=== PATIENT | male | born 1935 | race Caucasian/White ===

== ENCOUNTER 2021-04-03 22:03 | Inpatient (IN) | payer OTHER ==
[~2021-04-03] VITALS: Ht 200.7 cm; Wt 92.5 kg
[~2021-04-03 22:03] MED LIST: ASPI1TAB20 PO; ATOR-47 PO; BENA10TA14 PO; CARV12.544 PO; CETI1TAB36 PO; CLOP75TA70 PO; FINA5TAB4 PO; FLUT1SUS; LEVO150T10 PO; OMEG1360 PO; POLYSOL2 EACHEYE; TIMO0.5S28 EACHEYE
[2021-04-03 23:05] LABS: Basophils # (auto) 0 10 ^3/uL (0-0.2); Basophils % (auto) 0.3 % (0.0-2.0); Eosinophils # (auto) 0 10 ^3/uL (0-0.8); Eosinophils % (auto) 0.2 % (0.0-7.0); Hematocrit 43.6 % (41.0-53.0); Hemoglobin 15.1 g/dL (13.5-17.5); Lymphocytes # (auto) 2.5 10 ^3/uL (0.4-5.4); Lymphocytes % (auto) 17.9 % (10.0-50.0); Mean Corpuscular Hemoglobin 30.5 pg (28.0-32.0); Mean Corpuscular Hgb Conc. 34.5 g/dL (32.0-36.0); Mean Corpuscular Volume 88.5 fL (80.0-100.0); Monocytes # (auto) 0.9 10 ^3/uL (0-1.3); Neutrophils # (auto) 10.7 10 ^3/uL (1.6-8.6); Neutrophils % (auto) 75.6 % (37.0-80.0); Red Blood Cells 4.93 10^6/uL (4.5-5.90); Red Cell Distribution Width 14.3 % (11.8-14.3); White Blood Cell 14.2 10^3/uL (4.4-10.8)
[2021-04-03 23:19] LABS: INR 1.24 (0.9-1.15); Partial Thromboplastin Time 27.1 sec (23.0-31.2)
[2021-04-03 23:25] LABS: Alanine Aminotransferase 30 U/L (16-61); Albumin 3.2 g/dL (3.4-5.0); Aspartate Aminotransferase 24 U/L (15-37); BUN/Creatinine Ratio 12.5; Blood Urea Nitrogen 15 mg/dL (7-18); Calcium 8.3 mg/dL (8.5-10.1); Carbon Dioxide 22 mmol/L (21-32); GFR African American 74 mL/min; GFR Non-African American 61 mL/min; Glucose 128 mg/dL (74-106); Lipase 63 U/L (73-393); Potassium 4.1 mmol/L (3.5-5.1); Sodium 138 mmol/L (136-145)
[2021-04-03 23:29] LABS: Alkaline Phosphatase 117 U/L (45-117); Bilirubin, Total 1.1 mg/dL (0.2-1.0); Total Protein 7.2 g/dL (6.4-8.2)
[2021-04-03 23:31] LABS: Urine Amorphous Crystal FEW /hpf (None Seen); Urine Bacteria MOD /hpf (None Seen); Urine Blood Negative /uL (Negative); Urine Specific Gravity 1.012 (1.001-1.035); Urine WBC 86 /hpf (0 - 3); Urine WBC Clumps PRESENT /hpf (None Seen)
[2021-04-03 23:39] LABS: Anion Gap 7 (5-15); Chloride 109 mmol/L (98-107)
[2021-04-04] MEDS ORDERED: SODIUM CHLORIDE 0.9% 1,000 ML IV ONE (03:45)
[2021-04-04] MEDS ORDERED: ONDANSETRON HCL 4 MG/2 ML VIAL IV PRN (05:30)
[2021-04-04] MEDS ORDERED: HYDROcodone-ACET 5/325MG TAB PO PRN (05:30)
[2021-04-04] MEDS ORDERED: ACETAMINOPHEN 325 MG TAB PO PRN (05:30)
[2021-04-04] MEDS: LEVOTHYROXINE SODIUM 50 MCG TAB PO SCH (07:04)
[2021-04-04 07:06] LABS: Basophils # (auto) 0 10 ^3/uL (0-0.2); Basophils % (auto) 0.2 % (0.0-2.0); Eosinophils # (auto) 0.1 10 ^3/uL (0-0.8); Lymphocytes % (auto) 36.7 % (10.0-50.0); Mean Corpuscular Volume 88.6 fL (80.0-100.0); Monocytes # (auto) 1.1 10 ^3/uL (0-1.3); Monocytes % (auto) 9.7 % (0.0-12.0); Neutrophils # (auto) 5.7 10 ^3/uL (1.6-8.6); Neutrophils % (auto) 52.4 % (37.0-80.0); Nucleated Red Blood Cells % 0.1 %; Red Blood Cells 4.52 10^6/uL (4.5-5.90); Red Cell Distribution Width 14.4 % (11.8-14.3)
[2021-04-04 07:19] LABS: Albumin 2.7 g/dL (3.4-5.0); Calcium 8.1 mg/dL (8.5-10.1); Potassium 4.1 mmol/L (3.5-5.1)
[2021-04-04 07:26] LABS: BUN/Creatinine Ratio 12.4; Bilirubin, Total 1.2 mg/dL (0.2-1.0); Total Protein 6.3 g/dL (6.4-8.2)
[2021-04-04 09:00] VITALS: BP 141/77
[2021-04-04] MEDS: ENOXAPARIN SOD 40 MG/0.4 ML SYRINGE SC SCH (09:32)
[2021-04-04] MEDS: cefTRIAXone 1GM/50ML D5W 50 ML IV SCH (09:33)
[2021-04-04] MEDS ORDERED: ASPirin 81 mg TAB PO SCH (10:00)
[2021-04-04 13:00] VITALS: BP 132/78
[2021-04-04] MEDS ORDERED: LATA0.0019 EACHEYE (15:35)
[2021-04-04] MEDS ORDERED: LEVO150T10 PO (15:35)
[2021-04-04] MEDS ORDERED: ZINC220C8 PO (15:37)
[2021-04-04] MEDS ORDERED: CHOL20007 PO (15:37)
[2021-04-04] MEDS ORDERED: ASCO500T11 PO (15:37)
[2021-04-04 17:00] VITALS: BP 151/80
[2021-04-04] MEDS: Ensure HIGH Protein Chocolate 8oz Bottle PO SCH (17:52)
[2021-04-04] MEDS ORDERED: TAMSULOSIN HYDROCHLORIDE 0.4 MG CAP PO SCH (18:00)
[2021-04-04 21:15] VITALS: BP 116/52
[2021-04-04] MEDS: TIMOLOL MALEATE 0.25 % OPTH SOL 5ML EACHEYE SCH (21:43)
[2021-04-04] MEDS: CARVEDILOL 12.5 MG TAB PO SCH (21:44)
[2021-04-04] MEDS ORDERED: LATANOPROST 0.005 % OPTH(EYE) SOL 2.5ML EACHEYE SCH (22:00)
[2021-04-04] MEDS ORDERED: ATORVASTATIN 20 MG TAB PO SCH ×2 (22:00)
[2021-04-05 05:00] VITALS: BP 107/66
[2021-04-05 06:01] LABS: Basophils # (auto) 0 10 ^3/uL (0-0.2); Basophils % (auto) 0.2 % (0.0-2.0); Eosinophils # (auto) 0.2 10 ^3/uL (0-0.8); Eosinophils % (auto) 1.7 % (0.0-7.0); Hematocrit 41.4 % (41.0-53.0); Hemoglobin 14.7 g/dL (13.5-17.5); Lymphocytes # (auto) 2.7 10 ^3/uL (0.4-5.4); Lymphocytes % (auto) 30.8 % (10.0-50.0); Mean Corpuscular Hemoglobin 31.1 pg (28.0-32.0); Mean Corpuscular Hgb Conc. 35.4 g/dL (32.0-36.0); Mean Corpuscular Volume 87.7 fL (80.0-100.0); Monocytes # (auto) 0.9 10 ^3/uL (0-1.3); Monocytes % (auto) 10.6 % (0.0-12.0); Neutrophils # (auto) 4.9 10 ^3/uL (1.6-8.6); Neutrophils % (auto) 56.7 % (37.0-80.0); Red Blood Cells 4.72 10^6/uL (4.5-5.90); Red Cell Distribution Width 14.3 % (11.8-14.3); White Blood Cell 8.7 10^3/uL (4.4-10.8)
[2021-04-05] MEDS: LEVOTHYROXINE SODIUM 50 MCG TAB PO SCH (06:06)
[2021-04-05 06:20] LABS: Albumin 2.6 g/dL (3.4-5.0); Calcium 8.2 mg/dL (8.5-10.1); Potassium 4.6 mmol/L (3.5-5.1)
[2021-04-05 06:26] LABS: Bilirubin, Total 0.8 mg/dL (0.2-1.0); Total Protein 6.3 g/dL (6.4-8.2)
[2021-04-05] MEDS: Ensure HIGH Protein Chocolate 8oz Bottle PO SCH ×2 (08:12→12:41)
[2021-04-05 08:31] VITALS: BP 135/85
[2021-04-05] MEDS: cefTRIAXone 1GM/50ML D5W 50 ML IV SCH (09:22)
[2021-04-05] MEDS: TIMOLOL MALEATE 0.25 % OPTH SOL 5ML EACHEYE SCH (09:25)
[2021-04-05] MEDS: CARVEDILOL 12.5 MG TAB PO SCH (09:25)
[2021-04-05] MEDS: ENOXAPARIN SOD 40 MG/0.4 ML SYRINGE SC SCH (09:25)
[2021-04-05] MEDS ORDERED: ASCORBIC ACID 500 MG TAB PO SCH (10:00)
[2021-04-05] MEDS ORDERED: CLOPIDOGREL BISULFATE 75 MG TAB PO SCH (10:00)
[2021-04-05] MEDS ORDERED: CHOLECALCIFEROL (VITD3) 2,000 UNIT CAP/TAB PO SCH (10:00)
[2021-04-05] MEDS ORDERED: ZINC SULFATE 220mg CAP or TAB PO SCH (10:00)
[2021-04-05 12:47] VITALS: BP 113/84
[2021-04-05 13:59] VITALS: BP 122/73
== END 2021-04-05 16:25 | disposition home or self-care (01) | DRG 872 ==
LOC: ER 22:03 → EDBD 22:03 → OVERFLOW 04-04 05:16 → TELE-WESTW 04-04 09:29 → WEST WING 04-05 01:56
PROVIDERS: ADMIT Nurse Practitioner Family; ATTEND Internal Medicine
DX: A41.9 Sepsis, unspecified organism (principal); N39.0 Urinary tract infection, site not specified; E44.0 Moderate protein-calorie malnutrition; Z20.822 Contact with and (suspected) exposure to COVID-19; E86.0 Dehydration; R42 Dizziness and giddiness; E03.9 Hypothyroidism, unspecified; E78.5 Hyperlipidemia, unspecified; I10 Essential (primary) hypertension; I25.10 Atherosclerotic heart disease of native coronary artery without angina pectoris; Z79.02 Long term (current) use of antithrombotics/antiplatelets; Z79.82 Long term (current) use of aspirin; Z82.49 Family history of ischemic heart disease and other diseases of the circulatory system; Z82.79 Family history of other congenital malformations, deformations and chromosomal abnormalities; Z87.891 Personal history of nicotine dependence; Z79.899 Other long term (current) drug therapy; Z98.61 Coronary angioplasty status; N40.1 Benign prostatic hyperplasia with lower urinary tract symptoms
CPT/HCPCS: 36415; 51702; 70450; 71045; 80053; 80061; 81001; 83605; 83690; 83880; 84443; 84484; 85025; 85610; 85730; 87086; 87088; 87147; 87186; 87426; 93005; 96360; G0378; J0696; J2405

== ENCOUNTER 2022-06-05 03:47 | Emergency (ER) | payer OTHER ==
[~2022-06-05] VITALS: Ht 180.3 cm; Wt 95.0 kg
[~2022-06-05 03:47] MED LIST changes: +ASCO500T11 PO; -ASPI1TAB20 PO; -BENA10TA14 PO; -CETI1TAB36 PO; +CHOL20007 PO; -FINA5TAB4 PO; -FLUT1SUS; +LATA0.0019 EACHEYE; -OMEG1360 PO; -POLYSOL2 EACHEYE; +ZINC220C8 PO
[2022-06-05] MEDS ORDERED: cloNIDine HCL 0.1 MG TAB PO ONE (08:30)
[2022-06-05 09:06] LABS: Urine Bacteria NONE SEEN /hpf (None Seen); Urine Blood 3+ /uL (Negative); Urine Specific Gravity 1.013 (1.001-1.035); Urine WBC 48 /hpf (0 - 3)
[2022-06-05] MEDS ORDERED: NITR-87 PO (09:26)
[2022-06-05 10:48] VITALS: BP 109/76
== END 2022-06-05 10:49 | disposition home or self-care (01) ==
LOC: EDUNIT# 03:47 → ER 03:47 → EDBD 03:47 → ER 10:49
DX: T83.098A Other mechanical complication of other urinary catheter, initial encounter (principal); N39.0 Urinary tract infection, site not specified; I10 Essential (primary) hypertension; E03.9 Hypothyroidism, unspecified; E78.5 Hyperlipidemia, unspecified; Z79.01 Long term (current) use of anticoagulants; Z79.899 Other long term (current) drug therapy
CPT/HCPCS: 51702; 81001; 93005

== ENCOUNTER 2022-08-07 14:49 | Emergency (ER) | payer OTHER ==
[~2022-08-07] VITALS: Ht 188 cm; Wt 95.4 kg
[~2022-08-07 14:49] MED LIST changes: +NITR-87 PO
[2022-08-07 16:43] LABS: Basophils # (auto) 0.1 10 ^3/uL (0-0.2); Basophils % (auto) 0.8 % (0.0-2.0); Eosinophils # (auto) 0.2 10 ^3/uL (0-0.8); Eosinophils % (auto) 2.4 % (0.0-7.0); Hematocrit 46.3 % (41.0-53.0); Hemoglobin 15.1 g/dL (13.5-17.5); Lymphocytes % (auto) 32.7 % (10.0-50.0); Mean Corpuscular Hemoglobin 28.6 pg (28.0-32.0); Mean Corpuscular Hgb Conc. 32.6 g/dL (32.0-36.0); Mean Corpuscular Volume 87.8 fL (80.0-100.0); Monocytes # (auto) 0.7 10 ^3/uL (0-1.3); Monocytes % (auto) 7.3 % (0.0-12.0); Neutrophils # (auto) 5.2 10 ^3/uL (1.6-8.6); Neutrophils % (auto) 56.8 % (37.0-80.0); Nucleated Red Blood Cells % 0.1 %; Red Blood Cells 5.28 10^6/uL (4.5-5.90); Red Cell Distribution Width 14.6 % (11.8-14.3); White Blood Cell 9.2 10^3/uL (4.4-10.8)
[2022-08-07 17:01] LABS: INR 1.29 (0.9-1.15); Partial Thromboplastin Time 29.9 sec (24.6-33.4)
[2022-08-07 18:25] LABS: BUN/Creatinine Ratio 12.4; Potassium 4.8 mmol/L (3.5-5.1)
[2022-08-07 18:26] LABS: Albumin 2.8 g/dL (3.4-5.0); Bilirubin, Total 0.6 mg/dL (0.2-1.0); Calcium 8.2 mg/dL (8.5-10.1); Total Protein 6.1 g/dL (6.4-8.2)
[2022-08-07 19:39] VITALS: BP 128/79
[2022-08-07 20:21] LABS: Urine Bacteria MOD /hpf (None Seen); Urine Blood TRACE /uL (Negative); Urine Specific Gravity 1.005 (1.001-1.035); Urine WBC 79 /hpf (0 - 3)
[2022-08-07] MEDS ORDERED: CIPR-173 PO (20:44)
== END 2022-08-07 21:06 | disposition home or self-care (01) ==
LOC: ER 14:51
DX: N30.00 Acute cystitis without hematuria (principal); I10 Essential (primary) hypertension; E78.5 Hyperlipidemia, unspecified; Z98.61 Coronary angioplasty status; Z79.899 Other long term (current) drug therapy
CPT/HCPCS: 36415; 71045; 74176; 80053; 81001; 83605; 84484; 85025; 85610; 85730; 86850; 86900; 86901; 93005

== ENCOUNTER 2022-11-19 11:33 | Inpatient (IN) | payer OTHER ==
[~2022-11-19] VITALS: Ht 185.4 cm; Wt 94.0 kg
[~2022-11-19 11:33] MED LIST changes: +CIPR-173 PO
[2022-11-19 12:01] LABS: Basophils # (auto) 0 10 ^3/uL (0-0.2); Basophils % (auto) 0.4 % (0.0-2.0); Eosinophils # (auto) 0.2 10 ^3/uL (0-0.8); Eosinophils % (auto) 1.7 % (0.0-7.0); Hematocrit 47.4 % (41.0-53.0); Lymphocytes % (auto) 30.9 % (10.0-50.0); Mean Corpuscular Hemoglobin 29.7 pg (28.0-32.0); Mean Corpuscular Hgb Conc. 33.8 g/dL (32.0-36.0); Mean Corpuscular Volume 87.7 fL (80.0-100.0); Monocytes # (auto) 0.7 10 ^3/uL (0-1.3); Monocytes % (auto) 7.1 % (0.0-12.0); Neutrophils # (auto) 5.9 10 ^3/uL (1.6-8.6); Neutrophils % (auto) 59.9 % (37.0-80.0); Nucleated Red Blood Cells % 0.1 %; White Blood Cell 9.9 10^3/uL (4.4-10.8)
[2022-11-19 12:22] LABS: Albumin 3.5 g/dL (3.4-5.0); Calcium 8.5 mg/dL (8.5-10.1); Magnesium 2.5 mg/dL (1.6-2.6); Potassium 4.7 mmol/L (3.5-5.1)
[2022-11-19 12:24] LABS: INR 1.21 (0.9-1.15); Partial Thromboplastin Time 30.3 sec (24.6-33.4)
[2022-11-19 12:25] LABS: BUN/Creatinine Ratio 11.3; Bilirubin, Total 0.7 mg/dL (0.2-1.0); Total Protein 6.9 g/dL (6.4-8.2)
[2022-11-19] MEDS ORDERED: ACETAMINOPHEN 325 MG TAB PO PRN (17:00)
[2022-11-19] MEDS ORDERED: ONDANSETRON HCL 4 MG/2 ML VIAL IV PRN (17:00)
[2022-11-19] MEDS ORDERED: MAALOX PLUS or MAALOX 30 ML PO ONE (17:00)
[2022-11-19] MEDS ORDERED: NITROGLYCERIN 0.4 MG SL TAB SL PRN (17:00)
[2022-11-19] MEDS ORDERED: MORPHINE SULFATE 4 MG/ML SYR/VIAL IV PRN (17:00)
[2022-11-19] MEDS ORDERED: ASPirin 81 mg TAB PO SCH (17:32)
[2022-11-19] MEDS ORDERED: ENOXAPARIN SOD 100 MG/1 ML SYRINGE SC SCH (22:00)
[2022-11-19] MEDS: CARVEDILOL 3.125 MG TAB PO SCH (22:51)
[2022-11-19] MEDS: ATORVASTATIN 20 MG TAB PO SCH (22:51)
[2022-11-20 06:29] LABS: Urine Bacteria MANY /hpf (None Seen); Urine Blood Negative /uL (Negative); Urine Hyaline Cast FEW /lpf (0 - 2); Urine Mucus FEW (None Seen); Urine Specific Gravity 1.017 (1.001-1.035); Urine WBC 42 /hpf (0 - 3)
[2022-11-20 06:49] LABS: Basophils # (auto) 0 10 ^3/uL (0-0.2); Basophils % (auto) 0.5 % (0.0-2.0); Eosinophils # (auto) 0.2 10 ^3/uL (0-0.8); Eosinophils % (auto) 2.2 % (0.0-7.0); Hematocrit 42.7 % (41.0-53.0); Hemoglobin 14.6 g/dL (13.5-17.5); Lymphocytes # (auto) 2.8 10 ^3/uL (0.4-5.4); Lymphocytes % (auto) 38.2 % (10.0-50.0); Mean Corpuscular Hemoglobin 30.3 pg (28.0-32.0); Mean Corpuscular Hgb Conc. 34.2 g/dL (32.0-36.0); Mean Corpuscular Volume 88.6 fL (80.0-100.0); Monocytes # (auto) 0.6 10 ^3/uL (0-1.3); Neutrophils # (auto) 3.7 10 ^3/uL (1.6-8.6); Neutrophils % (auto) 51.1 % (37.0-80.0); Red Blood Cells 4.82 10^6/uL (4.5-5.90); White Blood Cell 7.3 10^3/uL (4.4-10.8)
[2022-11-20 07:15] LABS: BUN/Creatinine Ratio 15.1; Calcium 7.9 mg/dL (8.5-10.1); Potassium 4.3 mmol/L (3.5-5.1)
[2022-11-20] MEDS ORDERED: CLOPIDOGREL BISULFATE 75 MG TAB PO SCH (10:00)
[2022-11-20] MEDS ORDERED: cefTRIAXone 1GM/50ML D5W 50 ML IV ONE (13:15)
[2022-11-20 16:37] LABS: Free T4 (Free Thyroxine) 1.26 ng/dL (0.89-1.76)
[2022-11-20 16:38] LABS: Folate (Folic Acid) 18.94 ng/mL (5.38-24)
[2022-11-20] MEDS: LISINOPRIL 10 MG TAB PO SCH (17:04)
[2022-11-20] MEDS: DOCUSATE SOD 100 MG CAP PO SCH (17:04)
[2022-11-20] MEDS: CARVEDILOL 3.125 MG TAB PO SCH ×2 (17:05→22:53)
[2022-11-20] MEDS: ATORVASTATIN 20 MG TAB PO SCH (22:52)
[2022-11-20] MEDS: APIXABAN 2.5 MG TAB PO SCH (22:53)
[2022-11-21] VITALS (8 sets, daily range): BP systolic 98–142; BP diastolic 64–99
[2022-11-21] MEDS ORDERED: ATOR80TA PO ×2 (09:11→09:17)
[2022-11-21] MEDS ORDERED: APIX5TAB4 PO (09:20)
[2022-11-21] MEDS ORDERED: TAMS0.4C36 PO (09:23)
[2022-11-21] MEDS ORDERED: FINA5TAB4 PO (09:24)
[2022-11-21] MEDS: CARVEDILOL 3.125 MG TAB PO SCH ×2 (10:00→22:20)
[2022-11-21] MEDS: LISINOPRIL 10 MG TAB PO SCH (10:00)
[2022-11-21] MEDS: DOCUSATE SOD 100 MG CAP PO SCH (10:52)
[2022-11-21] MEDS: APIXABAN 2.5 MG TAB PO SCH ×2 (10:52→22:20)
[2022-11-21] MEDS: cefTRIAXone 1GM/50ML D5W 50 ML IV SCH (10:53)
[2022-11-21] MEDS: ATORVASTATIN 20 MG TAB PO SCH (22:20)
[2022-11-21 22:57] LABS: Urine Bacteria FEW /hpf (None Seen); Urine Blood Negative /uL (Negative); Urine WBC 24 /hpf (0 - 3)
[2022-11-22 05:00] VITALS: BP 147/84
[2022-11-22 09:00] VITALS: BP 134/90
[2022-11-22] MEDS: APIXABAN 2.5 MG TAB PO SCH (09:34)
[2022-11-22] MEDS: CARVEDILOL 3.125 MG TAB PO SCH ×2 (09:34→22:37)
[2022-11-22] MEDS: DOCUSATE SOD 100 MG CAP PO SCH (09:34)
[2022-11-22] MEDS: cefTRIAXone 1GM/50ML D5W 50 ML IV SCH (09:35)
[2022-11-22] MEDS: LISINOPRIL 10 MG TAB PO SCH (09:35)
[2022-11-22 13:00] VITALS: BP 106/71
[2022-11-22 17:00] VITALS: BP 115/74
[2022-11-22 20:00] VITALS: BP 140/78
[2022-11-22 22:00] VITALS: BP 140/78
[2022-11-22] MEDS: ATORVASTATIN 20 MG TAB PO SCH (22:37)
[2022-11-22] MEDS: APIXABAN 5 MG TAB PO SCH (22:37)
[2022-11-23] VITALS (7 sets, daily range): BP systolic 101–173; BP diastolic 68–98
[2022-11-23] MEDS: cefTRIAXone 1GM/50ML D5W 50 ML IV SCH (09:14)
[2022-11-23] MEDS: APIXABAN 5 MG TAB PO SCH (09:14)
[2022-11-23] MEDS: DOCUSATE SOD 100 MG CAP PO SCH (09:14)
[2022-11-23] MEDS: CARVEDILOL 3.125 MG TAB PO SCH (09:15)
[2022-11-23] MEDS: LISINOPRIL 10 MG TAB PO SCH (09:15)
[2022-11-23] MEDS ORDERED: CIPR-173 PO ×2 (12:54→12:57)
[2022-11-23] MEDS ORDERED: SODIUM CHLORIDE 0.9% 1,000 ML IV ONE (14:45)
== END 2022-11-23 17:46 | disposition home health service (06) | DRG 313 ==
LOC: ER 11:33 → TELE 17:29 → TELE-WESTW 11-20 22:44
PROVIDERS: ADMIT Hospitalist; ATTEND Family Medicine
DX: R07.89 Other chest pain (principal); G91.2 (Idiopathic) normal pressure hydrocephalus; N39.0 Urinary tract infection, site not specified; I48.91 Unspecified atrial fibrillation; N40.0 Benign prostatic hyperplasia without lower urinary tract symptoms; E03.9 Hypothyroidism, unspecified; E78.00 Pure hypercholesterolemia, unspecified; Z20.822 Contact with and (suspected) exposure to COVID-19; B96.20 Unspecified Escherichia coli [E. coli] as the cause of diseases classified elsewhere; F03.90 Unspecified dementia, unspecified severity, without behavioral disturbance, psychotic disturbance, mood disturbance, and anxiety; I11.0 Hypertensive heart disease with heart failure; I50.9 Heart failure, unspecified; Z91.81 History of falling; Z95.1 Presence of aortocoronary bypass graft; Z95.5 Presence of coronary angioplasty implant and graft; Z98.41 Cataract extraction status, right eye; Z98.42 Cataract extraction status, left eye; Z86.73 Personal history of transient ischemic attack (TIA), and cerebral infarction without residual deficits; Z82.49 Family history of ischemic heart disease and other diseases of the circulatory system; Z81.8 Family history of other mental and behavioral disorders; Z79.01 Long term (current) use of anticoagulants; Z79.899 Other long term (current) drug therapy
CPT/HCPCS: 36415; 70450; 70551; 71045; 80048; 80053; 81001; 82607; 82746; 83735; 84439; 84443; 84484; 85025; 85610; 85730; 87086; 87088; 87186; 87426; 93005; 93306; 93886; G0378; J0696

== ENCOUNTER 2022-12-08 19:02 | Emergency (ER) | payer OTHER ==
[~2022-12-08] VITALS: Ht 188 cm; Wt 94.7 kg
[~2022-12-08 19:02] MED LIST changes: +APIX5TAB4 PO; +ATOR80TA PO; +FINA5TAB4 PO; +TAMS0.4C36 PO
[2022-12-08 20:36] LABS: Basophils # (auto) 0.1 10 ^3/uL (0-0.2); Basophils % (auto) 0.4 % (0.0-2.0); Eosinophils # (auto) 0.1 10 ^3/uL (0-0.8); Hematocrit 49.1 % (41.0-53.0); Hemoglobin 16.2 g/dL (13.5-17.5); Lymphocytes # (auto) 1.7 10 ^3/uL (0.4-5.4); Lymphocytes % (auto) 14.2 % (10.0-50.0); Mean Corpuscular Hgb Conc. 32.9 g/dL (32.0-36.0); Monocytes # (auto) 1.2 10 ^3/uL (0-1.3); Monocytes % (auto) 9.5 % (0.0-12.0); Neutrophils # (auto) 9.1 10 ^3/uL (1.6-8.6); Neutrophils % (auto) 74.9 % (37.0-80.0); Nucleated Red Blood Cells % 0.1 %; Red Blood Cells 5.58 10^6/uL (4.5-5.90); Red Cell Distribution Width 14.7 % (11.8-14.3); White Blood Cell 12.2 10^3/uL (4.4-10.8)
[2022-12-08 20:55] LABS: Albumin 3.5 g/dL (3.4-5.0); BUN/Creatinine Ratio 12.1; Calcium 9.1 mg/dL (8.5-10.1); Potassium 4.9 mmol/L (3.5-5.1)
[2022-12-08 20:58] LABS: INR 1.28 (0.9-1.15); Partial Thromboplastin Time 30.4 sec (24.6-33.4)
[2022-12-08 21:08] LABS: Bilirubin, Total 1.5 mg/dL (0.2-1.0); Total Protein 7.2 g/dL (6.4-8.2)
[2022-12-09] MEDS ORDERED: cefTRIAXone SOD 1,000 MG VL IM ONE (01:30)
[2022-12-09 01:39] LABS: Urine Bacteria MANY /hpf (None Seen); Urine Blood 3+ /uL (Negative); Urine Mucus FEW (None Seen); Urine Specific Gravity 1.012 (1.001-1.035); Urine WBC 514 /hpf (0 - 3)
[2022-12-09 02:00] VITALS: BP 111/66
== END 2022-12-09 01:16 | disposition home or self-care (01) ==
LOC: ER 19:03
DX: N39.0 Urinary tract infection, site not specified (principal); I10 Essential (primary) hypertension; E78.5 Hyperlipidemia, unspecified; I48.91 Unspecified atrial fibrillation; Z98.61 Coronary angioplasty status; Z79.899 Other long term (current) drug therapy
CPT/HCPCS: 36415; 74176; 80053; 81001; 85025; 85610; 85730; 96372; 99285; J0696

== ENCOUNTER 2022-12-15 18:42 | Inpatient (IN) | payer OTHER ==
[~2022-12-15] VITALS: Ht 188 cm; Wt 210.0 kg
[2022-12-15 21:21] LABS: Hemoglobin 15.9 g/dL (13.5-17.5); Mean Corpuscular Hemoglobin 29.7 pg (28.0-32.0); Mean Corpuscular Hgb Conc. 33.8 g/dL (32.0-36.0); Mean Corpuscular Volume 88.1 fL (80.0-100.0); Red Blood Cells 5.34 10^6/uL (4.5-5.90); Red Cell Distribution Width 14.4 % (11.8-14.3); White Blood Cell 9.7 10^3/uL (4.4-10.8)
[2022-12-15 21:40] LABS: Albumin 2.6 g/dL (3.4-5.0); BUN/Creatinine Ratio 16.8; Calcium 8.2 mg/dL (8.5-10.1); Magnesium 2.7 mg/dL (1.6-2.6); Potassium 3.7 mmol/L (3.5-5.1)
[2022-12-15 21:41] LABS: INR 1.23 (0.9-1.15); Partial Thromboplastin Time 28.2 sec (24.6-33.4)
[2022-12-15 21:43] LABS: Bilirubin, Total 0.7 mg/dL (0.2-1.0); Total Protein 6.6 g/dL (6.4-8.2)
[2022-12-15 22:16] LABS: Band Neutrophils % (manual) 0; Basophils % (manual) 0 (0.0-2.0); Blast Cells 0; Eosinophils % (manual) 0 (0-7); Metamyelocytes % 0; Myelocytes % 0; Promyelocytes % 0; Reactive Lymphocytes 0
[2022-12-15 22:45] LABS: Lymphocytes % (manual) 36 (10.0-50.0); Monocytes % (manual) 6 (0-12)
[2022-12-16] MEDS ORDERED: ONDANSETRON HCL 4 MG/2 ML VIAL IV PRN (04:30)
[2022-12-16] MEDS ORDERED: ACETAMINOPHEN 325 MG TAB PO PRN (04:30)
[2022-12-16] MEDS: LEVOTHYROXINE SODIUM 50 MCG TAB PO SCH (07:02)
[2022-12-16] MEDS: PANTOPRAZOLE 40 MG TAB PO SCH (09:30)
[2022-12-16] MEDS: CLOPIDOGREL BISULFATE 75 MG TAB PO SCH ×2 (09:30→09:39)
[2022-12-16] MEDS: ASPirin 81 mg TAB PO SCH (09:30)
[2022-12-16] MEDS ORDERED: APIXABAN 2.5 MG TAB PO SCH (10:00)
[2022-12-16] MEDS ORDERED: ENOXAPARIN SOD 30 MG/0.3 ML SYRINGE SC SCH (10:00)
[2022-12-16] MEDS ORDERED: CARVEDILOL 12.5 MG TAB PO SCH (10:00)
[2022-12-16] MEDS ORDERED: SODIUM CHLORIDE 0.9% 500 ML IV ONE (14:45)
[2022-12-16] MEDS ORDERED: ALBUMIN 25% 100 ML IV ONE (16:45)
[2022-12-16 16:48] LABS: Free T4 (Free Thyroxine) 1.37 ng/dL (0.89-1.76)
[2022-12-16 16:49] LABS: Folate (Folic Acid) > 24.00 ng/mL (5.38-24)
[2022-12-16] MEDS: TAMSULOSIN HYDROCHLORIDE 0.4 MG CAP PO SCH (18:20)
[2022-12-16] MEDS: ATORVASTATIN 20 MG TAB PO SCH (22:10)
[2022-12-16] MEDS: NOREPINEPHRINE 8 MG/250ML KIT 250 ML IV SCH (22:33)
[2022-12-17] VITALS (11 sets, daily range): BP systolic 64–165; BP diastolic 43–119
[2022-12-17] MEDS ORDERED: LORazepam 2MG/ML-1ML VIAL IV PRN
[2022-12-17] MEDS ORDERED: ROCURONIUM 10MG/ML 10ML VIAL IV ONE ×2 (04:40→05:15)
[2022-12-17] MEDS ORDERED: ETOMIDATE (2MG/ML) 20ML VIAL IV ONE ×2 (04:40→05:15)
[2022-12-17] MEDS ORDERED: MIDAZOLAM HCL 2MG/2ML 2ml VIAL (1mg/ml) ONE (04:44)
[2022-12-17] MEDS ORDERED: dilTIAZem 25 MG/5 ML VIAL IV ONE ×2 (04:50→05:30)
[2022-12-17] MEDS ORDERED: MIDAZOLAM DRIP 50 mg/50mL 50 ML IV ONE (04:50)
[2022-12-17] MEDS: MIDAZOLAM DRIP 50 mg/50mL 50 ML IV SCH (04:50)
[2022-12-17] MEDS ORDERED: MIDAZOLAM HCL 5 MG/ML-1ML VIAL IV ONE (05:15)
[2022-12-17] MEDS ORDERED: MAGNESIUM SULFATE 1GM/100ML 100 ML IV ONE ×2 (05:15→07:00)
[2022-12-17] MEDS ORDERED: ALBUMIN 25% 100 ML IV ONE (05:30)
[2022-12-17] MEDS: LEVOTHYROXINE SODIUM 50 MCG TAB PO SCH (07:25)
[2022-12-17] MEDS: PROPOFOL 100 ML IV SCH ×2 (08:04→23:38)
[2022-12-17] MEDS: NOREPINEPHRINE 8 MG/250ML KIT 250 ML IV SCH (09:25)
[2022-12-17 09:43] LABS: Basophils # (auto) 0.1 10 ^3/uL (0-0.2); Basophils % (auto) 0.6 % (0.0-2.0); Eosinophils # (auto) 0.1 10 ^3/uL (0-0.8); Eosinophils % (auto) 1.3 % (0.0-7.0); Lymphocytes # (auto) 2.2 10 ^3/uL (0.4-5.4); Lymphocytes % (auto) 25.4 % (10.0-50.0); Mean Corpuscular Hemoglobin 29.4 pg (28.0-32.0); Mean Corpuscular Hgb Conc. 34.2 g/dL (32.0-36.0); Mean Corpuscular Volume 85.9 fL (80.0-100.0); Monocytes # (auto) 0.6 10 ^3/uL (0-1.3); Monocytes % (auto) 6.4 % (0.0-12.0); Neutrophils # (auto) 5.9 10 ^3/uL (1.6-8.6); Neutrophils % (auto) 66.3 % (37.0-80.0); Nucleated Red Blood Cells % 0.1 %; Red Blood Cells 4.77 10^6/uL (4.5-5.90); Red Cell Distribution Width 14.3 % (11.8-14.3); White Blood Cell 8.8 10^3/uL (4.4-10.8)
[2022-12-17] MEDS: ASPirin 81 mg TAB PO SCH (10:02)
[2022-12-17] MEDS: CLOPIDOGREL BISULFATE 75 MG TAB PO SCH (10:02)
[2022-12-17] MEDS: PANTOPRAZOLE 40 MG TAB PO SCH (10:02)
[2022-12-17 13:21] LABS: Potassium 3.5 mmol/L (3.5-5.1)
[2022-12-17 13:22] LABS: BUN/Creatinine Ratio 16.9; Calcium 7.8 mg/dL (8.5-10.1); Magnesium 3.2 mg/dL (1.6-2.6)
[2022-12-17 13:42] LABS: Urine Bacteria FEW /hpf (None Seen); Urine Blood 3+ /uL (Negative); Urine Hyaline Cast FEW /lpf (0 - 2); Urine Specific Gravity 1.007 (1.001-1.035); Urine WBC 25 /hpf (0 - 3)
[2022-12-17] MEDS ORDERED: cefTRIAXone 1GM/50ML D5W 50 ML IV ONE (16:30)
[2022-12-17] MEDS: TAMSULOSIN HYDROCHLORIDE 0.4 MG CAP PO SCH (18:01)
[2022-12-17] MEDS: ATORVASTATIN 20 MG TAB PO SCH (23:06)
[2022-12-18] VITALS (10 sets, daily range): BP systolic 99–145; BP diastolic 59–99
[2022-12-18] MEDS: MIDAZOLAM DRIP 50 mg/50mL 50 ML IV SCH ×2 (00:40→22:02)
[2022-12-18] MEDS: LEVOTHYROXINE SODIUM 50 MCG TAB PO SCH (06:06)
[2022-12-18] MEDS: PANTOPRAZOLE 40 MG TAB PO SCH (09:44)
[2022-12-18] MEDS: CLOPIDOGREL BISULFATE 75 MG TAB PO SCH (09:44)
[2022-12-18] MEDS: ASPirin 81 mg TAB PO SCH (09:44)
[2022-12-18] MEDS: cefTRIAXone 1GM/50ML D5W 50 ML IV SCH (09:45)
[2022-12-18] MEDS: PROPOFOL 100 ML IV SCH (15:31)
[2022-12-18] MEDS ORDERED: AMIODARONE 450mg/250ml AE 250 ML IV SCH (18:00)
[2022-12-18] MEDS: TAMSULOSIN HYDROCHLORIDE 0.4 MG CAP PO SCH (18:00)
[2022-12-18] MEDS: NOREPINEPHRINE 8 MG/250ML KIT 250 ML IV SCH (18:20)
[2022-12-18] MEDS ORDERED: dilTIAZem 25 MG/5 ML VIAL IV ONE (22:00)
[2022-12-18] MEDS ORDERED: AMIODARONE HCL 200 MG TAB PO SCH (22:00)
[2022-12-18] MEDS: ATORVASTATIN 20 MG TAB PO SCH (22:05)
[2022-12-18] MEDS ORDERED: HYALURONIDASE 150 UNIT/1 ML SUBCUT ONE (22:15)
[2022-12-19] VITALS (7 sets, daily range): BP systolic 96–163; BP diastolic 49–81
[2022-12-19] MEDS ORDERED: AMIODARONE 450mg/250ml AE 250 ML IV ONE (02:58)
[2022-12-19] MEDS: LEVOTHYROXINE SODIUM 50 MCG TAB PO SCH (06:01)
[2022-12-19 08:00] LABS: Basophils # (auto) 0.1 10 ^3/uL (0-0.2); Basophils % (auto) 0.6 % (0.0-2.0); Eosinophils # (auto) 0.2 10 ^3/uL (0-0.8); Eosinophils % (auto) 1.2 % (0.0-7.0); Hematocrit 47.8 % (41.0-53.0); Hemoglobin 16.2 g/dL (13.5-17.5); Lymphocytes # (auto) 2.9 10 ^3/uL (0.4-5.4); Lymphocytes % (auto) 21.9 % (10.0-50.0); Mean Corpuscular Hemoglobin 29.7 pg (28.0-32.0); Mean Corpuscular Hgb Conc. 33.9 g/dL (32.0-36.0); Mean Corpuscular Volume 87.5 fL (80.0-100.0); Monocytes % (auto) 7.2 % (0.0-12.0); Neutrophils # (auto) 9.3 10 ^3/uL (1.6-8.6); Neutrophils % (auto) 69.1 % (37.0-80.0); Red Blood Cells 5.47 10^6/uL (4.5-5.90); Red Cell Distribution Width 14.6 % (11.8-14.3); White Blood Cell 13.4 10^3/uL (4.4-10.8)
[2022-12-19 08:18] LABS: Albumin 3.3 g/dL (3.4-5.0); Calcium 8.2 mg/dL (8.5-10.1); Potassium 3.6 mmol/L (3.5-5.1)
[2022-12-19 08:20] LABS: INR 1.22 (0.9-1.15); Partial Thromboplastin Time 27.8 sec (24.6-33.4)
[2022-12-19 08:21] LABS: BUN/Creatinine Ratio 10.4; Total Protein 6.4 g/dL (6.4-8.2)
[2022-12-19] MEDS: MIDAZOLAM DRIP 50 mg/50mL 50 ML IV SCH (08:48)
[2022-12-19] MEDS ORDERED: AMIODARONE 450mg/250ml AE 250 ML IV SCH (09:30)
[2022-12-19] MEDS: ASPirin 81 mg TAB PO SCH (09:32)
[2022-12-19] MEDS: CLOPIDOGREL BISULFATE 75 MG TAB PO SCH (09:32)
[2022-12-19] MEDS: TAMSULOSIN HYDROCHLORIDE 0.4 MG CAP PO SCH (09:32)
[2022-12-19] MEDS: PANTOPRAZOLE 40 MG TAB PO SCH (09:32)
[2022-12-19] MEDS: cefTRIAXone 1GM/50ML D5W 50 ML IV SCH (09:33)
[2022-12-19] MEDS ORDERED: ALBUMIN 25% 100 ML IV ONE (11:30)
== END 2022-12-19 16:47 | disposition hospice, home (50) | DRG 208 ==
LOC: EDBD 18:42 → ER 18:42 → OVERFLOW 12-16 04:28
PROVIDERS: ADMIT Nurse Practitioner; ATTEND Internal Medicine
PROC: 5A1945Z Respiratory Ventilation, 24-96 Consecutive Hours (ICD-10-PCS; principal; 2022-12-17)
PROC: 0BH17EZ Insertion of Endotracheal Airway into Trachea, Via Natural or Artificial Opening (ICD-10-PCS; 2022-12-17)
PROC: 4A00X4Z Measurement of Central Nervous Electrical Activity, External Approach (ICD-10-PCS; 2022-12-17)
DX: J96.00 Acute respiratory failure, unspecified whether with hypoxia or hypercapnia (principal); G93.41 Metabolic encephalopathy; G91.2 (Idiopathic) normal pressure hydrocephalus; D68.9 Coagulation defect, unspecified; N17.9 Acute kidney failure, unspecified; G93.1 Anoxic brain damage, not elsewhere classified; I31.39 Other pericardial effusion (noninflammatory); J98.11 Atelectasis; I95.1 Orthostatic hypotension; I12.9 Hypertensive chronic kidney disease with stage 1 through stage 4 chronic kidney disease, or unspecified chronic kidney disease; B02.9 Zoster without complications; E78.5 Hyperlipidemia, unspecified; F03.90 Unspecified dementia, unspecified severity, without behavioral disturbance, psychotic disturbance, mood disturbance, and anxiety; I48.91 Unspecified atrial fibrillation; N18.9 Chronic kidney disease, unspecified; Z82.49 Family history of ischemic heart disease and other diseases of the circulatory system; G31.9 Degenerative disease of nervous system, unspecified; N40.0 Benign prostatic hyperplasia without lower urinary tract symptoms; E03.9 Hypothyroidism, unspecified; G93.89 Other specified disorders of brain; I25.10 Atherosclerotic heart disease of native coronary artery without angina pectoris; Z20.822 Contact with and (suspected) exposure to COVID-19; Z66 Do not resuscitate; Z86.73 Personal history of transient ischemic attack (TIA), and cerebral infarction without residual deficits; I25.2 Old myocardial infarction; Z91.81 History of falling; Z79.82 Long term (current) use of aspirin; Z79.01 Long term (current) use of anticoagulants; Z79.02 Long term (current) use of antithrombotics/antiplatelets; Z79.899 Other long term (current) drug therapy; Z98.41 Cataract extraction status, right eye; Z98.42 Cataract extraction status, left eye
CPT/HCPCS: 36415; 36600; 70450; 70551; 71045; 80048; 80053; 81001; 82140; 82607; 82746; 82805; 83735; 83880; 84439; 84443; 84484; 85007; 85025; 85027; 85610; 85730; 87070; 87077; 87086; 87088; 87186; 87205; 87426; 93005; 93886; 94002; 94003; 95819; 96365; G0378; J0696; J2250; J2704; J3470; P9047